=== PATIENT | male | born 1990 | race African-American/Black ===

== ENCOUNTER 2019-09-15 08:17 | Emergency (ER) | payer MEDICAID ==
[~2019-09-15] VITALS: Ht 193 cm; Wt 108.9 kg
--- NOTE | 2019-09-15 08:40 | NUR ---
PT IS IN ROOM #2B. DR TAYLOR EVALUATED THE PT. AUTOMATIC RIVETING MACHINE OPERATOR YARITZA WAS CALLED TO EVALUATE THE PT. MESSAGE WAS LEFT ON HER PHONE.
--- NOTE | 2019-09-15 09:32 | NUR ---
FATBACK TRIMMER YARITZA TALKED TO THE PT.PT REFUSED RESOURSES PAKAGE FOR HOMELESS PEOPLE. DR TAYLOR TALKED TO THE PT TO ADDRESS HIS NEEDS.
--- NOTE | 2019-09-15 09:36 | NUR ---
PT WENT TO THE RESTROOM AND ELOPED. DR TAYLOR WAS NOTIFIED.
--- NOTE | 2019-09-15 10:57 | NUR ---
Breakfast Attendant Consultation: 9:15am: SW arrived to the ED and met with Dr. Larose to consult on patient's case and need for social services designee. SW then met with the patient, who was in his assigned ED bed. Patient is a 29 year old -[place] male, homeless. Patient was alert, oriented, and expressed agreement for social media community manager to enter the room. SW introduced herself, and attempted to generate a conversation with the patient regarding his request to meet with a social media community manager. Patient responded saying "I've already told other people what I need, I don't have time to explain my needs to you again". SW acknowledged the patient's statement, and tried to explain to the patient that social services designee was contacted to try and provide him with resources and information based on the needs he had expressed to other staff. Patient then began to question this SW by making comments such as "well what do you know?" and "what did they tell you". SW explained her role to the patient, and patient then became demeaning and insulting towards the social media community manager. Patient's thought process was somewhat circumstantial, and he presented argumentative, unwilling to respond to this social media community manager's questions, but instead questioning the social media community manager's reason for meeting with him. SW once again tried to explain her role to the patient, and how social media community manager can provide support and assistance to the patient, however the patient was unwilling to appropriately engage in dialogue with this SW and continued to be uncooperative and argumentative. Patient then expressed refusing any assistance or resources. SW ended this interview, and reported all above to GERA Shelley and Dr. Larose. No further SS interventions needed at this time.
== END 2019-09-15 09:41 | disposition left against medical advice (07) ==
LOC: ER 08:17
DX: F20.0 Paranoid schizophrenia (principal); Z59.0 Homelessness; F43.10 Post-traumatic stress disorder, unspecified
CPT/HCPCS: A4663